=== PATIENT | female | born 1955 | race Two or more races ===

== ENCOUNTER 2017-09-02 07:46 | Emergency (ER) | payer BC, OTHER ==
[2017-09-02 07:52] VITALS: BMI 20.2
--- NOTE | 2017-09-02 08:19 | PDOC ---
Attending Attestation - Resident Resident Name: KishorKerrie - ED Attending Attestation I have performed the following: I have examined & evaluated the patient, The case was reviewed & discussed with the resident, I agree w/resident's findings & plan, Exceptions are as noted - HPI HPI: 09/02/17 08:20 61y F hx of colitis, anxiety pesents with palpitations, difficulty swallowing/ nauseus, poor appetitie, and difficulty sleeping. Pt states that these symptoms hav ebeen worsening recently, notes she had followed up with a psychiatrist last week, and was recommended zoloft, but she declined it due to it being 'for depressed people'. pt denies any social/work/life triggers. She denies any sob, cp, n/v, diaphoresis, leg swelling, abd pain, back pain, headache, numbness/ tingling/weakness, vision changes. Pt states she wants something to help her sleep. GENERAL: The patient is awake, alert, and fully oriented, Nontoxic - in no acute distress. HEAD: Normocephalic, atraumatic. EYES: extraocular movements intact, sclera anicteric, conjunctiva clear. ENT: Normal voice, Moist mucous membranes. NECK: Normal range of motion, supple LUNGS: Breath sounds equal, clear to auscultation bilaterally. No wheezes, no rhonchi, no rales. HEART: slightly tachycardic ABDOMEN: Soft, nontender, No guarding, no rebound. No CVA tenderness EXTREMITIES: Normal range of motion, no edema. NEUROLOGICAL: No facial assymetry, Normal speech, PSYCH: tearful affect SKIN: Warm, Dry, normal turgor, ddx: anxiety, hyperthyroidism, anemia, metabolic derangement will ck cbc, cmp, tsh, ua, will give pt a small dose of xanax pt has an appt with her psyciatrist today, if workup neg, will also have pt fu with her PMD - Physicial Exam PE: 09/02/17 11:53 see above - Medical Decision Making 09/02/17 10:52 Pts labs reviewed noted for leukocytosis to 14, rest of labs unremarkble will send UA to r/o UTI will recheck vitals and will likely dc t ofu with pmd for further fu 09/02/17 11:53 pt feelin gimproved will give pt a few xanax will dc the pt to fu with her pmd/psychitrist return precuatins were discussed
--- NOTE | 2017-09-02 08:27 | PDOC ---
History of Present Illness - General Chief Complaint: Psychiatric Stated Complaint: ANIEXTY Time Seen by Provider: 09/02/17 07:56 - History of Present Illness Initial Comments: 09/02/17 08:13 61 year old with a history of colitis and distant history of panic attacks who presents with 3 days of fast heart rate, inability to sleep, difficulty eating 2 /2 nausea. She notes that she tried to sleep with melatonin last night but could not fall asleep. She notes that her son had told her to try and take zoloft but she refused because that medication is for depressed people and she remarks that she is not depressed. She follows with a psychiatrist and has started CBT for panic attack symptoms. She reports that she has had panic attacks in her 20s and this episode does feel similar however they were never this bad and in the past she was able to talk herself down and never went to the ED or required hospital care for her panic attacks. She denies any recent stressors in work or home life. 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 At bedside she becomes very tearful at times. She denies any recreational drug use, chest pain, abdominal pain or headaches but admits to some SOB. She denies suicidal or homicidal ideation. 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, lives with 30 year old son Tob: 5 cigarettes a day Etoh: none Rec drugs: none Past History - Past Medical History Allergies/Adverse Reactions: Allergies Allergy/AdvReac Type Severity Reaction Status Date / Time Shellfish Allergy Intermediate Verified 09/02/17 07:49 amoxicillin trihydrate AdvReac Nausea Verified 09/02/17 07:49 [From Augmentin] potassium clavulanate AdvReac Verified 09/02/17 07:49 [From Augmentin] Home Medications: Ambulatory Orders Alprazolam [Xanax] 0.25 mg PO DAILY PRN #5 tablet MDD 1 09/02/17 Anemia: No Asthma: No Cancer: No Cardiac Disorders: No CVA: No COPD: No CHF: No Dementia: No Diabetes: No GI Disorders: Yes (collitis) Disorders: No HTN: No Hypercholesterolemia: No Liver Disease: No Seizures: No Thyroid Disease: No - Surgical History Abdominal Surgery: Yes (HERNIA) Appendectomy: No Cardiac Surgery: No Cholecystectomy: No Lung Surgery: No Neurologic Surgery: No Orthopedic Surgery: Yes (RIGHT WRIST SURGERY) - Suicide/Smoking/Psychosocial Hx Smoking Status: No Smoking History: Current every day smoker Have you smoked in the past 12 months: Yes Number of Cigarettes Smoked Daily: 4 Information on smoking cessation initiated: Yes 'Breaking Loose' booklet given: 09/02/17 Hx Alcohol Use: No Drug/Substance Use Hx: No Substance Use Type: None Hx Substance Use Treatment: No Review of Systems - Review of Systems Able to Perform ROS?: Yes Is the patient limited Icelandic proficient: No Constitutional: No: Chills, Fever HEENTM: No: Tinnitus Respiratory: Yes: Shortness of Breath (occasional). No: Cough Cardiac (ROS): No: Chest Pain ABD/GI: Yes: Nausea. No: Constipated, Diarrhea, Rectal Bleeding, Vomiting : No: Burning, Dysuria, Hematuria Musculoskeletal: No: Muscle Pain, Muscle Weakness Neurological: No: Headache, Numbness, Tingling *Physical Exam - Vital Signs Last Vital Signs Temp Pulse Resp BP Pulse Ox 98.4 F 110 H 20 132/97 100 09/02/17 07:46 09/02/17 07:46 09/02/17 07:46 09/02/17 07:46 09/02/17 07:46 - Physical Exam Comments: 09/02/17 08:32 GENERAL: Tearful and crying at bedside, awake, alert, and fully oriented HEAD: No signs of trauma, normocephalic, atraumatic EYES: EOMI, sclera anicteric, conjunctiva clear ENT: oropharynx clear without exudates. Moist mucosa NECK: Normal ROM LUNGS: No distress, speaks full sentences, clear to auscultation bilaterally HEART: Regular rate and rhythm, normal S1 and S2, no murmurs, rubs or gallops, peripheral pulses normal and equal bilaterally. ABDOMEN: Soft, nontender, normoactive bowel sounds. No guarding, no rebound. No masses EXTREMITIES : Normal inspection, Normal range of motion, no edema. No clubbing or cyanosis. NEUROLOGICAL: Cranial nerves II through XII grossly intact. Normal speech, normal gait, no focal sensorimotor deficits SKIN: Warm, Dry, normal turgor, no rashes or lesions noted ED Treatment Course - LABORATORY CBC & Chemistry Diagram: 09/02/17 09:00 09/02/17 09:00 Medical Decision Making - Medical Decision Making 09/02/17 08:43 61 year old with a history of colitis and distant history of panic attacks who presents with 3 days of fast heart rate, inability to sleep, difficulty eating 2 /2 nausea.The patient follows with a psychiatrist and has started CBT for panic attack symptoms. We will evaluate for causes of anxiety and tachycardia in the ED such as hyperthyoidism, arrythmia, metablic abnormalities, drug abuse. - CBC, CMP, TSH, Utox - 0.25mg xanax, 1L NS given 09/02/17 09:37 WBC -14 UA - negative The patient is stable for discharge with repeat vitals showing resolution of tachycardia. She is advised to follow up with her PCP for elevation of WBC and to follow closely with psychiatry. *DC/Admit/Observation/Transfer Diagnosis at time of Disposition: Panic attack - Discharge Dispostion Disposition: HOME Condition at time of disposition: Guarded Decision to Admit order: No - Prescriptions Prescriptions: Alprazolam [Xanax] 0.25 mg PO DAILY PRN #5 tablet MDD 1 PRN Reason: Anxiety - Referrals Referrals: Angela Reese MD [Primary Care Provider] - - Patient Instructions Printed Discharge Instructions: DI for Panic Disorder Additional Instructions: You were seen in the ED for panic attack symptoms. You were evaluated with blood work and treated for symptomatic relief. Advise that you follow up with your primary care physician and psychiatrist within 1-2 weeks. You will be given a short course of xanax outpatient for management of anxiety, but are advised to follow up with your psychiatrist. In the ED your blood work showed a slight elevation in white blood cells, which can be a sign of infection. You should be follow up with your primary care physician for further evaluation of this lab finding. Return to the ED immediately if you feel chest pain or pressure, significant shortness of breath, fevers or chills, abdominal pain or nausea. - Post Discharge Activity
[2017-09-02] MEDS ORDERED: ALPRAZolam 0.25 MG TABLET PO ONE (08:39)
[2017-09-02] MEDS ORDERED: ALPRAZolam 0.25 MG TABLET ONE (08:44)
[2017-09-02] MEDS ORDERED: SODIUM CHLORIDE 1,000 ML IV SCH ×2 (08:45→09:45)
[2017-09-02] MEDS ORDERED: SODIUM CHLORIDE 0.9% 500 ML INFUS.BAG IV ONE (09:21)
[2017-09-02 09:28] LABS: BASO % 0.4 % (0-2.0); EOS % 0.1 % (0-4.5); HEMOGLOBIN 14.6 GM/dL (10.7-15.3); LYMPH % 16.4 % (8-40); MCH 29.7 pg (25.7-33.7); MEAN CELL VOLUME 87.3 fl (80-96); MONO % 3.9 % (3.8-10.2); NEUT % 79.2 % (42.8-82.8); PLATELET COUNT 389 K/MM3 (134-434); RBC 4.93 M/mm3 (3.60-5.2); RDW 13.4 % (11.6-15.6); WHITE BLOOD COUNT 14.1 K/mm3 (4.0-10.0)
[2017-09-02 09:49] LABS: COCAINE, UR NEGATIVE ng/ml (CUTOFF=300); METHADONE, UR NEGATIVE ng/ml (CUTOFF=300); OPIATES, URI NEGATIVE ng/ml (CUTOFF=300); PHENCYCLIDINE,URINE NEGATIVE ng/ml (CUTOFF=25); URINE AMPHETAMINES NEGATIVE ng/ml (CUTOFF=500); URINE BARBITURATES NEGATIVE ng/ml (CUTOFF=200); URINE BENZODIAZEPINES NEGATIVE ng/ml (CUTOFF=200)
[2017-09-02 10:06] LABS: ALBUMIN 4.5 g/dl (3.4-5.0); ANION GAP 9 (8-16); BLOOD UREA NITROGEN 13 mg/dL (7-18); CHLORIDE 107 mmol/L (98-107); CO2 24 mmol/L (21-32); CREATININE 0.8 mg/dL (0.55-1.02); GLUCOSE,RANDOM 106 mg/dL (74-106); SGPT/ALT 23 U/L (12-78); SODIUM 140 mmol/L (136-145)
[2017-09-02 10:15] LABS: ALK PHOS 84 U/L (45-117); BILIRUBIN,TOTAL 1.2 mg/dL (0.2-1.0); TOT PROT 8.6 g/dl (6.4-8.2)
[2017-09-02 10:21] LABS: POTASSIUM 4.7 mmol/L (3.5-5.1); SGOT/AST 36 U/L (15-37)
[2017-09-02 11:30] VITALS: BP 124/52; PULSE 64; TEMP 97.9
[2017-09-02 11:30] LABS: URINE APPEARANCE CLEAR; URINE BILIRUBIN NEGATIVE (<2.0 mg/dL); URINE COLOR YELLOW; URINE GLUCOSE (UA) NEGATIVE (NEGATIVE); URINE KETONE 1+ (NEGATIVE); URINE LEUK ESTERASE NEGATIVE (NEGATIVE); URINE NITRITE NEGATIVE (NEGATIVE); URINE PROTEIN NEGATIVE (NEGATIVE); URINE UROBILINOGEN NEGATIVE mg/dL (0.2-1.0)
--- NOTE | 2017-09-02 14:28 | EKG ---
Test Reason : Blood Pressure : / mmHG Vent. Rate : 065 BPM Atrial Rate : 065 BPM P-R Int : 140 ms QRS Dur : 080 ms QT Int : 404 ms P-R-T Axes : 028 053 054 degrees QTc Int : 420 ms NORMAL SINUS RHYTHM NORMAL ECG WHEN COMPARED WITH ECG OF 13-APR-2014 11:00, QT HAS SHORTENED Confirmed by NICK PERRY MD ([id number]) on 09/02/2017 2:27:53 PM Referred By: Confirmed By:NICK PERRY MD
== END 2017-09-02 12:20 | disposition home or self-care (01) ==
LOC: JER 07:46
PROC: 3E0337Z Introduction of Electrolytic and Water Balance Substance into Peripheral Vein, Percutaneous Approach (ICD-10-PCS; principal; 2017-09-02)
DX: F41.0 Panic disorder [episodic paroxysmal anxiety] (principal)
CPT/HCPCS: 36415; 80053; 80307; 81003; 84443; 85025; 93005; 93010; 99282-25; J7030

== ENCOUNTER 2017-10-26 07:03 | Day surgery (SDC) | payer BC, OTHER ==
[2017-10-26 07:36] VITALS: BMI 22.0
[2017-10-26 08:41] VITALS: TEMP 98.8
[2017-10-26 11:00] VITALS: BP 121/60; PULSE 68
--- NOTE | 2017-10-27 16:48 | PATH ---
Surgical Pathology Report Patient Name: MAGDALENO HORNE [facility]. Rec. #: [id number] /Age/Gender: 1955 (Age: 61) / F Account: [id number] Location: U-ENDOSCOPY Taken: 10/26/2017 Received: 10/26/2017 Reported: 10/27/2017 Physicians: Phil Mason D.O. Specimen(s) Received A: BX SIGMOID B: BX RECTUM Clinical History Colitis Postoperative diagnosis: Hemorrhoids, rule out colitis Final Diagnosis A. SIGMOID COLON, BIOPSY: COLONIC MUCOSA WITH FOCAL ACTIVE COLITIS. SEE COMMENT. B. RECTUM, BIOPSY: COLONIC MUCOSA WITH FOCAL EXTRAVASATION OF RED BLOOD CELLS WITHIN LAMINA PROPRIA AND SMALL LYMPHOID AGGREGATES. Comment: Findings are non-specific. Although acute self-limited colitis is a consideration, among other conditions, the possibility of early inflammatory bowel disease cannot be completely excluded. Suggest clinical/radiologic correlation. Electronically Signed Angela Estrella M.D. Gross Description A. Received in formalin, labeled "biopsy sigmoid" are 5 yao, irregular portions of soft tissue ranging from 0.1-0.4 cm. in greatest dimension. The specimens are submitted in toto in one cassette. B. Received in formalin, labeled "biopsy rectum" are 2 yao, irregular portions of soft tissue averaging 0.1 cm. in greatest dimension. The specimens are submitted in toto in one cassette. DL/10/26/2017 saudi/10/26/2017
[2017-10-28 00:08] LABS: HBSAG SCREEN Negative (Negative); HEP A AB, IGM Negative (Negative); HEP B CORE AB, TOT Negative (Negative)
== END 2017-10-26 09:40 | disposition home or self-care (01) ==
LOC: JASU-ENDO 07:03
PROVIDERS: ATTEND Internal Medicine Gastroenterology
PROC: 0DBP8ZX Excision of Rectum, Via Natural or Artificial Opening Endoscopic, Diagnostic (ICD-10-PCS; 2017-10-26)
PROC: 0DBQ8ZX Excision of Anus, Via Natural or Artificial Opening Endoscopic, Diagnostic (ICD-10-PCS; principal; 2017-10-26 08:00)
DX: R10.84 Generalized abdominal pain (principal); K64.8 Other hemorrhoids; K64.4 Residual hemorrhoidal skin tags
CPT/HCPCS: 36415; 86704; 86706; 86708; 86803; 87340; 88305-TC

== ENCOUNTER 2019-01-30 10:38 | Emergency (ER) | payer BC, OTHER ==
[2019-01-30 10:47] VITALS: BP 125/58; PULSE 100; BMI 21.6
--- NOTE | 2019-01-30 10:57 | PDOC ---
History of Present Illness - General Chief Complaint: Bite Stated Complaint: BITE BED BUGS Time Seen by Provider: 01/30/19 10:49 History Source: Patient - History of Present Illness Timing/Duration: reports: other Past History - Past Medical History Allergies/Adverse Reactions: Allergies Allergy/AdvReac Type Severity Reaction Status Date / Time Shellfish Allergy Intermediate Verified 01/30/19 10:43 amoxicillin trihydrate AdvReac Nausea Verified 01/30/19 10:43 [From Augmentin] Home Medications: Ambulatory Orders Hydroxyzine HCl 25 mg PO DAILY 10/26/17 Sertraline HCl [Zoloft] 100 mg PO HS 10/26/17 Anemia: No Asthma: No Cancer: No Cardiac Disorders: No CVA: No COPD: No CHF: No Dementia: No Diabetes: No GI Disorders: Yes (collitis) Disorders: No HTN: No Hypercholesterolemia: No Liver Disease: No Seizures: No Thyroid Disease: No - Surgical History Abdominal Surgery: Yes (HERNIA) Appendectomy: No Cardiac Surgery: No Cholecystectomy: No Lung Surgery: No Neurologic Surgery: No Orthopedic Surgery: Yes (RIGHT WRIST SURGERY) - Psycho Social/Smoking Cessation Hx Smoking Status: No Smoking History: Current every day smoker Have you smoked in the past 12 months: Yes Number of Cigarettes Smoked Daily: 5 If you are a former smoker, when did you quit?: august 2017 Information on smoking cessation initiated: Yes 'Breaking Loose' booklet given: 09/02/17 Hx Alcohol Use: Yes Drug/Substance Use Hx: No Substance Use Type: None Hx Substance Use Treatment: No Review of Systems - Review of Systems Constitutional: No: Chills, Fever Respiratory: No: Shortness of Breath, Stridor, Wheezing Integumentary: Yes: Pruritus, Rash *Physical Exam - Vital Signs Last Vital Signs Temp Pulse Resp BP Pulse Ox 100 H 18 125/58 L 98 01/30/19 10:44 01/30/19 10:44 01/30/19 10:44 01/30/19 10:44 - Physical Exam General Appearance: Yes: Appropriately Dressed. No: Apparent Distress HEENT: positive: Normal Voice Neck: positive: Supple Respiratory/Chest: positive: Lungs Clear, Normal Breath Sounds. negative: Respiratory Distress, Stridor Cardiovascular: positive: Regular Rate, S1, S2 Integumentary: positive: Dry, Warm, Other (hives to UEs and chest) Neurologic: positive: Fully Oriented, Alert, Normal Mood/Affect Medical Decision Making - Medical Decision Making 01/30/19 10:54 63-year-old female, history of anxiety, here for evaluation of bites. Patient states after staying in in a new hotel recently, developed pruritic rash to upper extremities and chest. On hydroxyzine for her anxiety and states it does not help the itching. Also took Benadryl with no relief. No respiratory symptoms. see exam Hives M/l 2/2 insect bites -Dc w/ OTC oral or top antihistamine, cold compresses -PMD f/u as needed 01/30/19 10:55 Discharge - Discharge Information Problems reviewed: Yes Clinical Impression/Diagnosis: Hives Condition: Good Disposition: HOME - Follow up/Referral - Patient Discharge Instructions Patient Printed Discharge Instructions: DI for Hives Additional Instructions: It appears that you have hives which is new to allergies possibly to insects in this case Continue oral antihistamine and apply topical Benadryl and ice compresses as needed for itching Follow-up with your PMD as needed - Post Discharge Activity
== END 2019-01-30 11:05 | disposition home or self-care (01) ==
LOC: JERFT 10:38
DX: L50.0 Allergic urticaria (principal); F41.9 Anxiety disorder, unspecified; Z88.0 Allergy status to penicillin; Z91.013 Allergy to seafood
CPT/HCPCS: 99281-25

== ENCOUNTER 2020-03-30 11:58 | Emergency (ER) | payer OTHER ==
[2020-03-30 12:19] VITALS: BP 128/87; BMI 18.7
[2020-03-30] MEDS ORDERED: ONDANSETRON *ODT* 4 MG TABLET SL ONE (12:45)
[2020-03-30] MEDS ORDERED: ONDANSETRON *ODT* 4 MG TABLET ONE (12:55)
== END 2020-03-30 14:15 | disposition home or self-care (01) ==
LOC: JER 11:58
DX: U07.1 COVID-19 (principal)
CPT/HCPCS: 71046-TC-FY; 99284-25; Q0162